=== PATIENT | female | born 1970 | race Caucasian/White ===

== ENCOUNTER 2023-02-28 12:44 | Emergency (ER) | payer SELFPAY ==
[~2023-02-28] VITALS: Ht 172.7 cm; Wt 99.8 kg
[2023-02-28] VITALS (8 sets, daily range): BP systolic 117–134; BP diastolic 79–87
[2023-02-28] MEDS ORDERED: ALLERGY RELF10 M3 PO (16:16)
[2023-02-28] MEDS ORDERED: PREDNISONE50 MG PO (16:16)
[2023-02-28] MEDS ORDERED: EPIPEN 2-P0.3 MG/0.3 IM (16:16)
== END 2023-02-28 16:33 | disposition home or self-care (01) | DRG 916 ==
LOC: ED 12:44
DX: T78.09XA Anaphylactic reaction due to other food products, initial encounter (principal); I10 Essential (primary) hypertension